=== PATIENT | female | born 1955 | race Caucasian/White ===

== ENCOUNTER 2020-08-09 09:51 | Outpatient (REF) | payer OTHER, SELFPAY ==
--- NOTE | 2020-08-10 09:16 | MHC.AU.ANO ---
Adult Audiological Evaluation Date of Visit: 08/09/20 Reason for Appointment: Patient reports an increase in hearing difficulty. She reports difficulty hearing in background noise and difficulty hearing the television. She has also been experiencing dizziness when turning over in bed, accompanied by nausea. She has frequent pain/pressure in her ears, especially her left ear. Hearing Handicap Inventory: HHIE SCORE: 22 Based on HHIE score, patient has: Mild to moderate perceived hearing handicap Ear History: Ear Deformity: None Reported Recent Ear Drainage: None Reported Recent Ear Pain: Left Ear Family History of Hearing Loss?: Yes: Father Recent Ear Infections: None Reported Ear Infections in Childhood: None Reported History of Ear Wax Buildup: None Reported Previous Ear Surgery: None Reported Bothersome Tinnitus/Ringing/Noises in Ears: Both Ears Ear used on the phone: Right Ear Blocked/Full Sensation in Ear(s): Both Ears History of occupational noise exposure?: No History: No Medical History: Medical History: Lisa's Thyroiditis, Sleep Apenea (uses C-PAP), Hypertension, Seasonal Allergies Otoscopy: Right Ear: Unremarkable Left Ear: Unremarkable Tympanometry: Tympanometry performed due to: To assess integrity of the middle ear system Right Ear: Normal Middle Ear System (Type A) Left Ear: Normal Middle Ear System (Type A) Otoacoustic Emissions Frequency Range Used: 1.6-8 kHz Right Ear Results: Present 1.6-3.2 kHz, Reduced 3.6-8 kHz Analysis: Reduced/Absent emissions suggest cochlear dysfunction Left Ear Results: Present 1.6-4.0 kHz, Reduced 4.5-8 kHz Analysis: Reduced/Absent emissions suggest cochlear dysfunction Hearing Evaluation: Transducer(s) Used: Insert Earphones Method: Conventional Audiometry Stimuli Used: Pure Tones Right Ear: Description of Hearing: Borderline-normal to mild sensorineural hearing loss Left Ear: Description of Hearing: Borderline-normal to mild sensorineural hearing loss Speech Recognition Threshold (SRT): Method Used: Recorded Lists Stimuli Used: Spondee Words Right Ear: 25 dBHL Left Ear: 25 dBHL Word Discrimination: Method: Recorded Lists Word Lists Used: NU-6 Right Ear: 100% at 65 Left Ear: 100% at 65 Most Comfortable Level (MCL): Right Ear: 65 dBHL Left Ear: 65 dBHL QuickSIN: Score of 2 dB SNR loss, which indicates average level of difficulty hearing in noise Recommendations: Audiological re-evaluation in one year. Hearing aids are not warranted at this time. Referral to Ear, Nose, and Throat is recommended to address ear pain/pressure and positional dizziness. Diagnosis: Primary Diagnosis: H90.3 Bilateral Sensorineural Hearing Loss Services Performed: Comprehensive Audiological Evaluation (CPT 40091), Limited Otoacoustic Emissions (CPT 50503), Tympanometry (CPT 35914) Signature: Provider: Armando Johnston, CCC-A
== END 2020-08-09 09:52 | disposition home or self-care (01) ==
LOC: HO.SH 09:51
PROVIDERS: Visit Provider Nurse Practitioner Adult Health
DX: H90.3 Sensorineural hearing loss, bilateral (principal)
CPT/HCPCS: 92557; 92567; 92587